=== PATIENT | female | born 2000 | race Caucasian/White ===

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

== ENCOUNTER → 2022-11-21 15:03 | Outpatient (CLI) | payer OTHER, SELFPAY ==
--- NOTE | 2022-11-21 | DI.US.S_ITS ---
PROCEDURE: US OB >= 14 WEEKS FETUS INDICATIONS: 20WK ANATOMY SCAN OUTSIDE/PRIOR DATING DATA: Last menstrual period (LMP): 06/30/2022. LMP-based estimated date of delivery (LAUREANO): 04/06/2023. First dating scan (date and location): 11/21/2022. The calculations are made using the clinical LAUREANO of 04/06/2023. TECHNIQUE: Real-time scanning was performed of the fetus, with image documentation and biometric measurements. COMPARISON: None. FINDINGS: General: A single living intrauterine gestation is present. Presentation: Breech. Placenta: Placental position is anterior, without previa. Amniotic fluid index: 13.5 cm, normal range is 5-24 cm. Single deepest vertical pocket is 4.1 cm. heart rate: 144 beats per minute. Maternal cervical canal: 4.7 cm long. Normal lower limit is 2.5 cm. biometrics: Biparietal diameter: 4.8 cm, 20 weeks 4 days Head circumference: 18.8 cm, 21 weeks 0 days Abdominal circumference: 16.6 cm, 21 weeks 4 days Femur length: 3.3 cm, 20 weeks 1 days Clinically estimated gestational age: 20 weeks 4 days Composite gestational age from present scan: 20 weeks 6 days Estimated weight and percentile: 389 g, 67th percentile Anatomic survey: Neuro: Ventricles are non-dilated at less than 10 mm. Cisterna magna is normal at 3-11 mm. Cerebellum is normal in size and morphology. Nuchal skin fold: Normal at less than 6 mm between 14-21 weeks gestational age. Face: Nose and lips, facial profile are normal. Spine: No evidence for spina bifida. Heart: 4-chambered heart is present, with normal ventricular outflow tracts. Diaphragm: Diaphragm is intact. Stomach: Left-sided stomach is present. Kidneys: No hydronephrosis. Normal is less than 5 mm in 2nd trimester, less than 7 mm in 3rd trimester. Cord: 3-vessel cord has orthotopic insertion. Bladder: Normal in size. Extremities: All 4 extremities identified. IMPRESSION: 1. Tyler living intrauterine at 20 weeks 6 days based on today's ultrasound. Fetus is in the 67th percentile for weight. 2. Normal placenta and amniotic fluid. 3. Normal and complete anatomic survey. We strive to produce accurate, complete, and clear reports of imaging services. To assist us in improving patient care, this report was composed using standard report templates and voice recognition software. Therefore, it may contain abnormal punctuation, insertions and/or omissions. Occasional wrong-word or sound-alike substitutions may occur. Though we review the report and make efforts to correct it, we do recommend that the report be read carefully in proper context to recognize any text inaccuracies. Dictated by: Dk Frias M.D. on 11/21/2022 at 16:23 Approved by: Dk Frias M.D. on 11/21/2022 at 16:27
== END ==
PROVIDERS: Referring Provider Nurse Practitioner Obstetrics & Gynecology; Visit Provider Nurse Practitioner Obstetrics & Gynecology
DX: Z34.92 Encounter for supervision of normal pregnancy, unspecified, second trimester (principal); Z3A.20 20 weeks gestation of pregnancy
CPT/HCPCS: 76811

== ENCOUNTER → 2023-02-25 13:22 | Outpatient (CLI) | payer OTHER, SELFPAY ==
--- NOTE | 2023-02-25 | DI.US.S_ITS ---
PROCEDURE: US OB LIMITED INDICATIONS: GROWTH OUTSIDE/PRIOR DATING DATA: Last menstrual period (LMP): 06/30/2022. LMP-based estimated date of delivery (LAUREANO): 04/06/2023. First dating scan (date and location): 11/21/2022. The calculations are made using the clinical LAUREANO of 04/06/2023. TECHNIQUE: Real-time scanning was performed of the fetus, with image documentation and biometric measurements. Endovaginal scanning: Not performed COMPARISON: [facility], OB >= 14 WEEKS FETUS, 11/21/2022, 15:11. FINDINGS: General: A single living intrauterine gestation is present. Presentation: Vertex. Placenta: Placental position is anterior , without previa. Amniotic fluid index: 11.5 cm, normal range is 5-24 cm. Single deepest vertical pocket is 7.4 cm. heart rate: 137 beats per minute. biometrics: Biparietal diameter: 8.7 centimeters, 35 weeks and 1 day Head circumference: 31.4 centimeters, 35 weeks and 2 days Abdominal circumference: 31.2 centimeters, 35 weeks and 6 days Femur length: 6.8 centimeters, 34 weeks and 6 days Clinically estimated gestational age: 34 weeks and 2 days Composite gestational age from present scan: 35 weeks and 2 days Estimated weight and percentile: 2690 grams, 79th percentile Other: Not applicable. IMPRESSION: Single live intrauterine at 35 weeks and 2 days. Normal interval growth. We strive to produce accurate, complete, and clear reports of imaging services. To assist us in improving patient care, this report was composed using standard report templates and voice recognition software. Therefore, it may contain abnormal punctuation, insertions and/or omissions. Occasional wrong-word or sound-alike substitutions may occur. Though we review the report and make efforts to correct it, we do recommend that the report be read carefully in proper context to recognize any text inaccuracies. Dictated by: Tyler Godinez M.D. on 02/25/2023 at 14:36 Approved by: Tyler Godinez M.D. on 02/25/2023 at 14:38
== END ==
PROVIDERS: Referring Provider Nurse Practitioner Obstetrics & Gynecology; Visit Provider Nurse Practitioner Obstetrics & Gynecology
DX: O26.843 Uterine size-date discrepancy, third trimester (principal); Z3A.35 35 weeks gestation of pregnancy
CPT/HCPCS: 76815

== ENCOUNTER 2023-04-07 02:39 | Inpatient (IN) | payer OTHER, MEDICAID, SELFPAY ==
[2023-04-07 03:37] LABS: Add Manual Diff / Slide Review NO; Basophils Absolute Auto 100 /uL (0-100); Basophils Percent Auto 0.5 % (0-2); Eosinophils Absolute Auto 200 /uL (0-450); Eosinophils Percent Auto 1.1 % (2-4); Hematocrit 35.5 % (36-46); Hemoglobin 12.3 g/dL (12.0-16.0); Lymphocytes Absolute Auto 3300 /uL (1100-4500); Lymphocytes Percent Auto 20.3 % (25-40); Mean Corpuscular HGB Conc 34.6 % (30-36); Mean Corpuscular Hemoglobin 30.8 PG (26-34); Mean Corpuscular Volume 89.2 fL (80-100); Monocytes Absolute Auto 600 /uL (0-900); Monocytes Percent Auto 3.8 % (3-14); Neutrophils Absolute Auto 12100 /uL (1500-7000); Neutrophils Percent Auto 74.3 % (50-75); Platelet Count 180 X10^3/uL (150-400); Red Blood Cell Count 3.98 X10^6/uL (4.0-5.2); White Blood Cell Count 16.3 X10^3/uL (4.5-11.0)
--- NOTE | 2023-04-07 04:13 | PM.AN.REGBLK ---
Regional Block Pre-procedure Procedure: Continuous Lumbar Epidural for L&D Attending OB provider: Jen Blackwell PMH/ROS narrative: 22yo female full-term in labor requesting epidural. Hx smoking and alcohol prior to . Pt denies hx drug use; chart notes hx of meth abuse and alcohol abuse in past. See Preanesthesia evaluation for additional hx and exam. PSH/Anesthesia history narrative: Prior labor epidural, one-sided block; epidural was replaced with good efficacy. ASA Class: II Labs: Hct 35.5 % (36-46) L 04/07/23 03:20 Plt Count 180 X10^3/uL (150-400) 04/07/23 03:20 Medications: Current Medications Generic Name Dose Route Start Last Admin Trade Name Freq PRN Reason Stop Dose Admin Carboprost Tromethamine 250 mcg 04/07/23 03:23 Carboprost 250 Mcg/Ml Ampul IM Q90M PRN Bleeding Oxytocin/Lactated Ringer's 30 unit in 500 mls @ 200 mls/hr 04/07/23 03:23 Oxytocin Premix IV CONT PRN Bleeding Protocol Tranexamic Acid 1,000 mg/ 100 mls @ 200 mls/hr 04/07/23 03:23 Sodium Chloride IV NOW PRN Bleeding Lactated Ringer's 1,000 mls @ 100 mls/hr 04/07/23 03:30 Lactated Ringers IV CONT DIOR Ampicillin Sodium 1,000 mg/ 100 mls @ 200 mls/hr 04/07/23 04:15 Sodium Chloride IV Q6H DIOR Lidocaine HCl 20 ml 04/07/23 03:23 Lidocaine 1% 20 Ml INJ INTRA-OP PRN Post Delivery Methylergonovine Maleate 0.2 mg 04/07/23 03:23 Methylergonovine 0.2 Mg Tablet PO Q6HR PRN Heavy Bleeding Methylergonovine Maleate 0.2 mg 04/07/23 03:23 Methylergonovine 0.2 Mg/Ml Vial IM NOW PRN Bleeding Misoprostol 800 mcg 04/07/23 03:23 Misoprostol 200 Mcg Tablet IA NOW PRN Bleeding Misoprostol 400 mcg 04/07/23 03:23 Misoprostol 200 Mcg Tablet SL NOW PRN Bleeding Naloxone HCl 0.2 mg 04/07/23 03:23 Naloxone 0.4 Mg/Ml Vial IV Q2MIN PRN Opiate Reversal Oxytocin 10 unit 11/28/23 03:23 Oxytocin 10 Unit/Ml Vial IM NOW PRN Bleeding Allergies: Allergies Allergy/AdvReac Type Severity Reaction Status Date / Time gluten Allergy Verified 04/07/23 04:01 lactose Allergy Verified 04/07/23 04:01 Procedure Insertion date: 04/07/23 Insertion time: 03:55 Prep/Local: 1% lidocaine Interspace: L3-4 Patient position: sitting Needle: 18 gauge Hustead Loss of resistance with: saline RUBY at (cm): 6 Catheter placed at SKIN (cm): 13 Catheter in SPACE (cm): 7 Insertion: Yes Paresthesia with insertion Initial Medications TEST DOSE time: 03:56 BOLUS DOSE time: 03:57 BOLUS DOSE (mL): 5 BOLUS DOSE med: other Infusion INFUSION: 0.125% bupivacaine and with fentanyl 2 mcg/mL Initial rate (mL/hr): 10 Subsequent interventions: Lido 2% 5 ml initial bolus. Pt reports pain 6/10, down from 10/10. Mj DAWKINS effective, R>L. Clinician bolus when starting infusion, 5 ml, at 04:10. Post-procedure Anesthesia time START: 03:48 Anesthesia time END: 06:49 Post-procedure Anesthesia Assessment: Yes CV function: HR/BP stable, Yes Resp function: RR/sat/airway adequate, Yes Post-op hydration adequate, Yes Pain control adequate, Yes Nausea & vomiting absent, Yes Temperature > 36 C and Yes Mental status appropriate
[2023-04-07] MEDS: AMPICILLIN 2,000 MG in SODIUM CHLORIDE 0.9% 100 ML 200 MG IV (04:15)
[2023-04-07] MEDS: LACTATED RINGERS 1,000 ML 100 ML IV (04:18)
--- NOTE | 2023-04-07 04:36 | P.HPOB_ITS ---
OB HPI Date/Time Date of admission: 04/07/23 Date Patient Seen: 04/07/23 Time Patient Seen: 02:30 History of Present Condition Chief complaint: labor : 2 Para: 1 Estimated Date of Delivery: 04/06/23 Estimated Gestational Age (weeks): 40w1d Narrative: Roseline Gaytan is a 22 year old female at 40w1d by LMP and confirmed by9w6d ultrasound. 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 She took LDASA throughout this for history of Jazz's. Roseline had normal mid-trimester ultrasound, normal labs, and was GBS negative. Roseline saw CNM yesterday and had a membrane sweep at 4 cm. Paged at 0115 wondering if she should head in, but was uncertain about labor sensations; uncomfortable but difficult to time contractions, and then decided to come in at 0200. She arrived working hard in labor, and when she asked for an exam, she was 7.5/90/0/anterior/soft. She requested an epidural. Denied leaking of fluid. Baby normally active. History of Present care: good care (9), initiated at week # (9), number of visits (12) and pounds weight gain (20) Dating criteria: LMP confirmed by 1st trimester US Ultrasounds: normal 1st trimester US and normal mid trimester US Preadmission Labs Blood type: O (+) positive -: Antibody screen: negative, GBS status: positive, HBsAG: negative, HIV: negative and RPR/VDLR: negative -: Chlamydia screen: not detected and Gonorrhea screen: not detected -: Rubella: immune and Varicella: immune HCT: 33.6 HCAB: negative PAP: Normal Integrated screen: MSAFP negative Cell-free DNA: Negative x 3, XY Prior (ies) History: TAB 12/2018, uncomplicated 06/2020 [facility] Medical History (Updated 04/07/23 @ 05:05 by Jen Blackwell, JOE, [employer] EFFECTS MAKEUP ARTIST) Genital HSV Status post elective Methamphetamine abuse, episodic Alcohol abuse Anxiety HSV (herpes simplex virus) infection Jazz's thyroiditis History of ear injury Asthma Depression Surgical History No history of previous surgery Family History Family/Other Depression Social History Smoking Status: Current some day smoker (Gave patient a smoking cessation handout.) Tobacco: How many years used: 2 quit status: considering quitting (I'm working on it. ) second hand exposure: No alcohol intake: former substance use type: former substance user (meth and weed quit 02/19/18) Meds Home Medications and Allergies Home Medications Medication Instructions Recorded Confirmed Type bupropion HCl 150 mg 24 hr tablet, 150 mg PO QAM #30 tabs 12/28/18 02/07/19 Rx extended release buspirone 5 mg tablet 5 mg PO BID #60 tabs 12/28/18 02/07/19 Rx levothyroxine 112 mcg tablet 112 mcg PO DAILY 04/07/23 04/07/23 History (Synthroid) liothyronine 04/07/23 History Allergies Allergy/AdvReac Type Severity Reaction Status Date / Time gluten Allergy Verified 04/07/23 04:01 lactose Allergy Verified 04/07/23 04:01 Review of Systems Review of Systems Narrative: All negative except as mentioned in HPI. OB Exam Vital signs Blood Pressure: 115/62 Pulse Rate: 95 Respiratory Rate: 20 Temperature: 95.9 F Resp Effort & Inspection: normal respiratory effort and able to speak in complete sentences Extremities Lower extremity: Yes normal to inspection Presentation: vertex Estimated Weight (lbs): 8 Amniotic Fluid: no fluid Objective Labs 04/07/23 03:20 Labs: Laboratory Results - last 24 hr 04/07/23 03:20 WBC 16.3 H RBC 3.98 L Hgb 12.3 Hct 35.5 L MCV 89.2 MCH 30.8 MCHC 34.6 RDW 14.0 Plt Count 180 Neut % (Auto) 74.3 Lymph % (Auto) 20.3 L [place] % (Auto) 3.8 Eos % (Auto) 1.1 L Baso % (Auto) 0.5 Neut # (Auto) 41898 H Lymph # (Auto) 3300 [place] # (Auto) 600 Eos # (Auto) 200 Baso # (Auto) 100 Blood Type O Positive Antibody Screen Negative Assessment and Plan Assessment and Plan Assessment and Plan narrative: at 40w1d by LMP confirmed by early ultrasound. GBS positive Rh positive History of genital herpes Jazz's thyroiditis History of anxiety and depression History of methamphetamine and alcohol abuse FHR Cat 1 Active labor Admit to L&D Prepare for epidural and call anesthesia Administer GBS prophylaxis Anticipate .
[2023-04-07 05:12] VITALS: BP 115/62; PULSE 95; RESP 20; TEMP 35.5
--- NOTE | 2023-04-07 05:40 | P.PCNOB_ITS ---
<Jen Blackwell CNM, DECK SCALER - Last Filed: 04/07/23 07:30> Labor & Delivery Delivery date: 04/07/23 Intrapartal Events: None Cervical ripening method: none Induction method: none Delivery monitor: none Route of delivery: L&D Laceration Description: None Quantitative Blood Loss: 400 Anesthesia Type: Epidural Narrative: Labor progressed well. Began pushing with anterior lip reduced by CNM; effective pushing resulted in a short 2nd stage. FHR was Cat 1 throughout 2nd stage. NSVB of baby at 065, shoulders delivered easily. Baby was placed on maternal abdomen by Abraham (FOB) when Roseline was ready and reached for him. Apgars 9/9. They remained skin to skin while cord was cut and placenta was delivered. Placenta delivered spontaneously with maternal efforts and appeared to be intact. 3 vessel cord clamped and cut by FOB at 10 minutes of life after cord pulsing had stopped. Cord blood collected for blood typing. Perineum inspected and found to be intact. Stretch agus between clitoris and . Blood loss measured and estimated loss is 400 mL. Mom and baby left stable and is being initiated. Roseline & Abraham are thrilled to meet their son. Jen ALBRIGHT CNM, IBCLC [place] Baby 1: Infant gender: Male Presentation: vertex Position: Left Occiput Anterior Placenta delivery description: Spontaneous Cord Vessel Description: 3 Vessels score (1 min): 8 score (5 min): 8 Plan for aftercare: Routine care <Syl Macias CNM - Last Filed: 04/08/23 16:24> Labor & Delivery Narrative: Labor progressed well. Began pushing with anterior lip reduced by CNM; effective pushing resulted in a short 2nd stage. FHR was Cat 1 throughout 2nd stage. NSVB of baby at 065, shoulders delivered easily. Baby was placed on maternal abdomen by Abraham (FOB) when Roselnie was ready and reached for him. Apgars 9/9. They remained skin to skin while cord was cut and placenta was delivered. Placenta delivered spontaneously with maternal efforts and appeared to be intact. 3 vessel cord clamped and cut by FOB at 10 minutes of life after cord pulsing had stopped. Cord blood collected for blood typing. Perineum inspected and found to be intact. Stretch agus between clitoris and urethra. Blood loss measured and estimated loss is 400 mL. Mom and baby left stable and is being initiated. Roseline & Abraham are thrilled to meet their son. Jen ALBRIGHT CNM, IBCLC [place] Baby 1: weight: 3.877 kg
[2023-04-07] MEDS: OXYTOCIN 10 UNIT/ML VIAL IM (07:17)
[2023-04-07] MEDS: LEVOTHYROXINE 112 MCG TABLET PO (09:37)
[2023-04-07] MEDS: LIOTHYRONINE 5 MCG TABLET PO (09:37)
--- NOTE | 2023-04-07 12:18 | P.DS_ITS ---
Discharge Providers Provider Date of admission: 04/07/23 02:39 Discharge Date: 04/07/23 Primary care physician: Jero ULRICH Provider Discharge provider: Syl Macias CNM Summary Hospital Course Date Patient Seen: 04/07/23 Time Patient Seen: 12:00 Diagnoses: O80 Hospital Course: Day of delivery: 5 hours s/p NSVB of a healthy baby boy. Epidural catheter has been removed. Patient is voiding, ambulating and independently. Minimal pain is well controlled with PO medication. Tolerating a general diet. Vaginal bleeding is period-like without clots. Partner is present and supportive. they would like an early discharge to home, if all is normal. Peripartum Data Delivery Method: Natural Vaginal Laceration Description: Superficial Episiotomy description: None [employer] 1: Gender: Male Disposition of : home Discharge Diagnosis (1) Encounter for full-term uncomplicated delivery: Status: Acute Status at Discharge Cognitive/behavioral status at discharge: oriented and calm Functional status at discharge: independent ambulation Overall status at discharge: patient is progressing back to baseline Time Spent with Patient Time attestation: Total time spent providing and/or coordinating discharge services: Objective Labs 04/07/23 03:20 Labs: Laboratory Results - last 24 hr 04/07/23 03:20 WBC 16.3 H RBC 3.98 L Hgb 12.3 Hct 35.5 L MCV 89.2 MCH 30.8 MCHC 34.6 RDW 14.0 Plt Count 180 Neut % (Auto) 74.3 Lymph % (Auto) 20.3 L [place] % (Auto) 3.8 Eos % (Auto) 1.1 L Baso % (Auto) 0.5 Neut # (Auto) 44093 H Lymph # (Auto) 3300 [place] # (Auto) 600 Eos # (Auto) 200 Baso # (Auto) 100 Blood Type O Positive Antibody Screen Negative Exam Vital Signs (past 8 hours): - 04/07/23 1045 Temperature 97.2 F L Pulse Rate 87 H Respiratory Rate 20 Blood Pressure 102/61 Other: Fundus firm @ u, lochia light, no clots Psych Appearance: grossly normal and well kempt Mental Status: mental status grossly normal Speech and Movement: speech and movement normal Mood: congruent mood Discharge Plan Discharge Plan Patient Disposition: Home Discharge orders & Medications Prescriptions: New ibuprofen 600 mg tablet 600 mg PO Q6H PRN (Reason: pain) 14 Days Qty: 60 0RF Continued levothyroxine [Synthroid] 112 mcg tablet 112 mcg PO DAILY liothyronine 5 mcg tablet Discontinued buspirone 5 mg tablet 5 mg PO BID Qty: 60 3RF Rx Instructions: Take one tablet at bedtime for 3 nights, then twice daily thereafter bupropion HCl 150 mg tablet extended release 24 hr 150 mg PO QAM Qty: 30 3RF Follow up/Referrals: Provider,Jero ULRICH [Primary Care Provider] - Syl Macias CNM [[employer] Structural Fitter] - (Follow-up for yourself and your baby tomorrow 04/08/23 @ 1145am 2 week follow-up in office 04/22/23 @ 3pm 6 week follow-up in office 05/20/22 @ 1245pm ) Diet/Activity/Treatments Diet: Diet as Tolerated and Regular Activity: bed rest x 2 weeks, pelvic rest x 6 weeks Skin/Wound/Dressing Care Report to your healthcare provider any signs of infection, such as:: chills, fever, increased pain, unusual drainage and unusual redness Visit Report/Discharge Packet Instructions: Depression Stand Alone Forms: Patient Portal/API, Stroke Signs & Symptoms Discharge Data Primary Care Provider: Jero Muro
[2023-04-07] MEDS: ACETAMINOPHEN 325 MG TABLET 650 MG PO (12:38)
== END 2023-04-07 14:55 | disposition home or self-care (01) | DRG 807 ==
PROVIDERS: Admitting Provider Advanced Practice Midwife; Referring Provider Advanced Practice Midwife; Visit Provider Advanced Practice Midwife
DX: O98.32 Other infections with a predominantly sexual mode of transmission complicating childbirth (principal); Z37.0 Single live birth; A60.9 Anogenital herpesviral infection, unspecified; O99.284 Endocrine, nutritional and metabolic diseases complicating childbirth; E06.3 Autoimmune thyroiditis; Z3A.40 40 weeks gestation of pregnancy; O99.824 Streptococcus B carrier state complicating childbirth; O99.334 Smoking (tobacco) complicating childbirth
CPT/HCPCS: 36415; 59050; 85025; 86850; 86900; 86901; G0379; J0290; J2590

== ENCOUNTER → 2023-11-16 14:10 | Outpatient (CLI) | payer OTHER, MEDICAID, SELFPAY ==
--- NOTE | 2023-11-16 14:11 | DI.US.S_ITS ---
PROCEDURE: US OB >= 14 WEEKS FETUS INDICATIONS: anatomy OUTSIDE/PRIOR DATING DATA: Last menstrual period (LMP): 06/20/2023 LMP-based estimated date of delivery (LAUREANO): 03/26/2024 First dating scan (date and location): Unknown Estimated date of delivery (LAUREANO) from first dating scan: 04/05/2024 TECHNIQUE: Real-time scanning was performed of the fetus, with image documentation and biometric measurements. COMPARISON: US, OB LIMITED, 02/25/2023, 13:28. [facility], , OB >= 14 WEEKS FETUS, 11/21/2022, 15:11. FINDINGS: General: A single living intrauterine gestation is present. Presentation: Vertex. Placenta: Placental position is posterior , without previa. 11.4 Amniotic fluid index: 11.4 cm, normal range is 5-24 cm. Single deepest vertical pocket is 3.4 cm. heart rate: 140 beats per minute. Maternal cervical canal: 5.5 cm long. Normal lower limit is 2.5 cm. biometrics: Biparietal diameter: 4.3 cm 19 weeks 0 days Head circumference: 17.1 cm 19 weeks 5 days Abdominal circumference: 14.3 cm 19 weeks 4 days Femur length: 3.7 cm 21 weeks 4 days Clinically estimated gestational age: 21 weeks 2 days Composite gestational age from present scan: 20 weeks 0 days Estimated weight and percentile: 351 g 10th percentile Anatomic survey: Neuro: Ventricles are non-dilated at less than 10 mm. Cisterna magna is normal at 3-11 mm. Cerebellum is normal in size and morphology. Nuchal skin fold: Normal at less than 6 mm between 14-21 weeks gestational age. Face: Nose and lips, facial profile are normal. Spine: No evidence for spina bifida. Heart: 4-chambered heart and ventricular outflow tracts are not well seen. Diaphragm: Diaphragm is intact. Stomach: Left-sided stomach is present. Kidneys: No hydronephrosis. Normal is less than 5 mm in 2nd trimester, less than 7 mm in 3rd trimester. Cord: 3-vessel cord has orthotopic insertion. Bladder: Normal in size. Extremities: Left upper extremity is not well seen. IMPRESSION: Single live intrauterine with ultrasound gestational age today of 20 weeks 1 day. 4 chambered heart/outflow tracts and left upper extremity are not well seen. Recommend interval follow-up. weight is at the 10th percentile. However, this is early gestational age age and continued follow-up is recommended. We strive to produce accurate, complete, and clear reports of imaging services. To assist us in improving patient care, this report was composed using standard report templates and voice recognition software. Therefore, it may contain abnormal punctuation, insertions and/or omissions. Occasional wrong-word or sound-alike substitutions may occur. Though we review the report and make efforts to correct it, we do recommend that the report be read carefully in proper context to recognize any text inaccuracies. Dictated by: Chanell Marcelino M.D. on 11/16/2023 at 17:40 Approved by: Chanell Marcelino M.D. on 11/16/2023 at 17:43
== END ==
PROVIDERS: PCP Family Medicine; Referring Provider Family Medicine; Visit Provider Family Medicine
DX: Z34.82 Encounter for supervision of other normal pregnancy, second trimester (principal); Z3A.20 20 weeks gestation of pregnancy
CPT/HCPCS: 76811

== ENCOUNTER → 2023-12-03 15:45 | Outpatient (CLI) | payer OTHER, MEDICAID, SELFPAY ==
[2023-12-03 16:48] LABS: Alanine Aminotransferase 10 IU/L (<35); Albumin Globulin Ratio 1.3 (1.0-2.8); Alkaline Phosphatase 84 U/L (38-126); Aspartate Aminotransferase 19 IU/L (14-36); BUN Creatinine Ratio 9.8 (6-22); Blood Urea Nitrogen 5 mg/dL (7-17); Calcium 8.7 mg/dL (8.4-10.2); Carbon Dioxide 22 mmol/L (22-32); Chloride 109 mmol/L (98-107); Estimated Glomerular Filt Rate > 60 mL/min (>60); Globulin 3.2 g/dL (1.7-4.1); Glucose 80 mg/dL (70-100); HEMOLYSIS < 15 (0-50); Potassium 3.6 mmol/L (3.4-5.1); Sodium 138 mmol/L (137-145); Total Protein 7.2 g/dL (6.3-8.2)
== END ==
PROVIDERS: PCP Family Medicine; Referring Provider Family Medicine; Visit Provider Family Medicine
DX: Z34.80 Encounter for supervision of other normal pregnancy, unspecified trimester (principal)
CPT/HCPCS: 36415; 80053; 84443

== ENCOUNTER 2023-12-18 16:57 | Outpatient (CLI) | payer OTHER, MEDICAID, SELFPAY | END 2023-12-18 17:45 | disposition home or self-care (01) | LOC: LABOR 17:16 → OB 12-22 12:28 | PROVIDERS: PCP Family Medicine; Referring Provider Family Medicine; Visit Provider Family Medicine | DX: O46.92 Antepartum hemorrhage, unspecified, second trimester (principal); Z3A.24 24 weeks gestation of pregnancy | CPT/HCPCS: 59025; G0378; G0379 ==

== ENCOUNTER → 2023-12-29 09:59 | Outpatient (CLI) | payer OTHER, MEDICAID, SELFPAY | PROVIDERS: PCP Family Medicine; Referring Provider Family Medicine; Visit Provider Family Medicine | DX: O36.5990 Maternal care for other known or suspected poor fetal growth, unspecified trimester, not applicable or unspecified (principal) | CPT/HCPCS: 87210 ==

== ENCOUNTER → 2024-01-01 10:02 | Outpatient (CLI) | payer OTHER, MEDICAID, SELFPAY ==
[2024-01-01 10:33] LABS: Add Manual Diff / Slide Review NO; Basophils Absolute Auto 0 /uL (0-100); Basophils Percent Auto 0.3 % (0-2); Eosinophils Absolute Auto 200 /uL (0-450); Hematocrit 32.4 % (36-46); Hemoglobin 11.3 g/dL (12.0-16.0); Lymphocytes Absolute Auto 2200 /uL (1100-4500); Mean Corpuscular Hemoglobin 31.4 PG (26-34); Mean Corpuscular Volume 89.8 fL (80-100); Monocytes Absolute Auto 400 /uL (0-900); Monocytes Percent Auto 4.4 % (3-14); Neutrophils Absolute Auto 7200 /uL (1500-7000); Neutrophils Percent Auto 71.3 % (50-75); Platelet Count 157 X10^3/uL (150-400); Red Blood Cell Count 3.61 X10^6/uL (4.0-5.2); Red Cell Distribution Width 13.6 % (11.6-14.8); White Blood Cell Count 10.1 X10^3/uL (4.5-11.0)
[2024-01-01 10:55] LABS: Glucose 83 mg/dL (70-100)
== END ==
PROVIDERS: PCP Family Medicine; Referring Provider Family Medicine; Visit Provider Family Medicine
DX: E06.3 Autoimmune thyroiditis (principal); F41.8 Other specified anxiety disorders
CPT/HCPCS: 36415; 82947; 84443; 85025

== ENCOUNTER → 2024-01-05 08:31 | Outpatient (CLI) | payer OTHER, MEDICAID, SELFPAY ==
[2024-01-05 10:43] LABS: GTT (PREG) 1 Hour PP 50gm Dose 87 mg/dL (76-139)
== END ==
PROVIDERS: PCP Family Medicine; Referring Provider Family Medicine; Visit Provider Family Medicine
DX: Z34.80 Encounter for supervision of other normal pregnancy, unspecified trimester (principal)
CPT/HCPCS: 36415; 82950

== ENCOUNTER → 2024-01-13 10:28 | Outpatient (CLI) | payer OTHER, MEDICAID, SELFPAY | PROVIDERS: PCP Family Medicine; Visit Provider Nurse Practitioner Family | DX: J02.9 Acute pharyngitis, unspecified (principal) | CPT/HCPCS: 87070 ==

== ENCOUNTER 2024-02-05 13:00 | Outpatient (CLI) | payer OTHER, MEDICAID, SELFPAY ==
[2024-02-05 13:47] LABS: Appearance Urine UA CLOUDY; Bilirubin Urine UA NEGATIVE (NEGATIVE); Color Urine UA YELLOW; Glucose Urine UA NEGATIVE (Negative); Ketones Urine UA NEGATIVE (NEGATIVE); Leukocyte Esterase Urine UA 2+ (NEGATIVE); Nitrite Urine UA NEGATIVE (Negative); Occult Blood Urine UA NEGATIVE (Negative); Protein Urine UA 1+ (Negative); Specific Gravity Urine UA 1.015 (1.000-1.035)
[2024-02-05 13:51] LABS: Urine Volume 10mL (spun)
[2024-02-05 13:52] LABS: Bacteria Urine Many (>30); Culture Indicated Urine Specimen Cultured; RBC Urine None Seen (0-5/HPF); Squamous Epithelial Cell Urine 5-10 /HPF (0-5/HPF); WBC Urine 5-10/HPF (0-5/HPF)
--- NOTE | 2024-02-05 14:19 | P.TNLD_ITS ---
Visit Information Visit Information Date of evaluation: 02/05/24 Primary OB Provider: Sharla Serna Reason for Evaluation: Yes other Comments/Additional reasons for admission: at 31w3d today, complicated by hypothyroidism, HSV, h/o severe PP depression and concern for IUGR now resolved. Called clinic today with concerns for pelvic cramping. Thought she was having BH since midnight. Not increasing in intensity, vague pain. Unable to count frequency. No change in discharge. No LOF or VB. Good FM. Recommended evaluation in OB triage given symptoms at 31 weeks. [facility] Medical History (Updated 01/04/24 @ 19:14 by Akila Chino) Substance abuse Anemia (~2017) Tinnitus Ovarian cyst Hemorrhoid (~2018) Hypothyroidism Cervical cancer (~2020) Acne HSV (herpes simplex virus) infection Positive GBS test Genital HSV Status post elective Methamphetamine abuse, episodic Alcohol abuse Anxiety History of ear injury Asthma Depression Surgical History (Updated 11/16/23 @ 10:38 by Rosette Leon RN) History of dilation and curettage (~2018) [place] teeth extracted (~2018) Family History (Updated 11/16/23 @ 10:42 by Rosette Leon, FUNMILAYO) Mother Hypothyroidism Depression hemorrhage Sister Hyperthyroidism Aunt Hyperthyroidism Skin cancer Grandfather Parkinson's disease Grandmother Hypertension Depression Father Depression Grandmother Depression Social History (System 11/16/23 @ 08:42 by Liane Allison) marital status: unmarried,living together number of children: 2 household members: significant other lives independently: Yes caregiver/support person: Yes housing: homeless (couch hopping w/ relatives) pets and animals: No education level: college (Associate's degree) occupational status: unemployed current occupational exposures/hazards: No special joo needs: No travel history: over 6 months ago seatbelt use: always water heater temp set < 120 deg: Yes working smoke detector in home: Yes fire extinguisher in home: Yes carbon monox detector in home: Yes firearms in home: No do you feel safe at home: Yes Smoking Status: Former smoker Tobacco: How many years used: 9 (smoked->vaped->nicotine gum, quit at beginning of this ) quit status: considering quitting (I'm working on it. ) second hand exposure: Yes (s/o smokes outside) alcohol intake: former (~1-2 glasses wine/week most weeks when not ) substance use type: former substance user (meth and weed quit 02/19/18, relapsed, quit again 2019) during the past year weight has: other (youngest child 7 months old (~15-20 lb over non- wt at beginning of this )) well-balanced diet: daily or most days daily servings fruits/ve or more times/day caffeine: Yes (1-2 shots espresso) Type(s) of exercise: none Exam Vital Signs (past 8 hours): Cervix C/T/H on exam by FUNMILAYO Kapoor Objective Labs Labs: Laboratory Results - last 24 hr 02/05/24 13:23 Urine Color Yellow Urine Appearance Cloudy Urine pH 7.0 Ur Specific [place] 1.015 Urine Protein 1+ H Urine Glucose (UA) Negative Urine Ketones Negative Urine Occult Blood Negative Urine Nitrate Negative Urine Bilirubin Negative Urine Urobilinogen 1.0 Ur Leukocyte Esterase 2+ H Urine RBC None seen Urine WBC 5-10/hpf H Ur Squamous Epith Cells 5-10 /hpf H Urine Bacteria Many (>30) H Ur Culture Indicated? Specimen cultured Vol Urine Centrifuged 10ml (spun) Evaluation Evaluation Baseline heart rate: 120 Variability: Moderate (11-25) monitor accelerations: Present Monitor Decelerations: Absent Category of Tracing: Reactive Status: Category l Diagnosis, Plan/Disposition Plan/Disposition Plan: FHT category 1. No contractions on monitoring. Cervix C/T/H on exam. UA concerning for UTI. Rx for Keflex sent. Urine culture pending. Rest, hydration advised. Wet prep pending. F/u as planned, sooner if not improving or worsening
== END 2024-02-05 14:15 | disposition home or self-care (01) ==
LOC: LABOR 13:26 → OB 02-08 09:03
PROVIDERS: PCP Family Medicine; Referring Provider Family Medicine; Visit Provider Family Medicine
DX: O26.893 Other specified pregnancy related conditions, third trimester (principal); R10.9 Unspecified abdominal pain; O99.283 Endocrine, nutritional and metabolic diseases complicating pregnancy, third trimester; O98.513 Other viral diseases complicating pregnancy, third trimester; B00.9 Herpesviral infection, unspecified; E03.9 Hypothyroidism, unspecified; Z3A.31 31 weeks gestation of pregnancy
CPT/HCPCS: 59025; 81003; 81015; 87086; 87210; G0378; G0379

== ENCOUNTER → 2024-02-12 08:27 | Outpatient (CLI) | payer OTHER, MEDICAID, SELFPAY ==
[2024-02-12 10:59] LABS: TSH w/ Reflex to FT4 2.54 uIU/mL (0.47-4.68)
== END ==
PROVIDERS: PCP Family Medicine; Referring Provider Family Medicine; Visit Provider Family Medicine
DX: E03.9 Hypothyroidism, unspecified (principal)
CPT/HCPCS: 36415; 84443

== ENCOUNTER → 2024-02-15 12:00 | Outpatient (CLI) | payer OTHER, MEDICAID, SELFPAY ==
--- NOTE | 2024-02-15 | DI.US.S_ITS ---
PROCEDURE: US OB LIMITED INDICATIONS: growth OUTSIDE/PRIOR DATING DATA: Last menstrual period (LMP): 06/20/2023. LMP-based estimated date of delivery (LAUREANO): 03/26/2024. First dating scan (date and location): Not known Estimated date of delivery (LAUREANO) from first dating scan: 04/05/2024. The calculations are made using the clinical LAUREANO of 03/26/2024. TECHNIQUE: Real-time scanning was performed of the fetus, with image documentation and biometric measurements. COMPARISON: [facility], OB LIMITED, 02/25/2023, 13:28. [facility], OB >= 14 WEEKS FETUS, 11/16/2023, 14:25. FINDINGS: General: A single living intrauterine gestation is present. Presentation: Vertex. Placenta: Placental position is posterior , without previa. Amniotic fluid index: 17.1 cm, normal range is 5-24 cm. Single deepest vertical pocket is 6.9 cm. heart rate: 125 beats per minute. Maternal cervical canal: 3.7 cm long. Normal lower limit is 2.5 cm. biometrics: Biparietal diameter: 8.1 cm 32 weeks 4 days Head circumference: 29.8 cm 33 weeks 0 days Abdominal circumference: 30.1 cm 34 weeks 1 day Femur length: 6.7 cm 34 weeks 3 days Clinically estimated gestational age: 34 weeks 2 days Composite gestational age from present scan: 33 weeks 4 days Estimated weight and percentile: 2300 g 33rd percentile Other: Upper extremity and cardiac structures are within normal limits. IMPRESSION: Single live intrauterine with gestational age of 33 weeks 4 days. Upper extremity cardiac structures are within normal limits. We strive to produce accurate, complete, and clear reports of imaging services. To assist us in improving patient care, this report was composed using standard report templates and voice recognition software. Therefore, it may contain abnormal punctuation, insertions and/or omissions. Occasional wrong-word or sound-alike substitutions may occur. Though we review the report and make efforts to correct it, we do recommend that the report be read carefully in proper context to recognize any text inaccuracies. Dictated by: Chanell Marcelino M.D. on 02/15/2024 at 17:34 Approved by: Chanell Marcelino M.D. on 02/15/2024 at 17:36
== END ==
LOC: US 12:03
PROVIDERS: PCP Family Medicine; Referring Provider Family Medicine; Visit Provider Family Medicine
DX: Z34.83 Encounter for supervision of other normal pregnancy, third trimester (principal); Z3A.33 33 weeks gestation of pregnancy
CPT/HCPCS: 76815

== ENCOUNTER → 2024-03-15 10:07 | Outpatient (CLI) | payer OTHER, MEDICAID, SELFPAY ==
[2024-03-16 10:46] LABS: Strep Grp B PCR POS for Grp B Strep
== END ==
PROVIDERS: PCP Family Medicine; Referring Provider Family Medicine; Visit Provider Family Medicine
DX: Z34.83 Encounter for supervision of other normal pregnancy, third trimester (principal); Z3A.37 37 weeks gestation of pregnancy
CPT/HCPCS: 87653

== ENCOUNTER 2024-04-07 06:07 | Inpatient (IN) | payer OTHER, MEDICAID, SELFPAY ==
[2024-04-07 07:03] LABS: Add Manual Diff / Slide Review NO; Basophils Absolute Auto 100 /uL (0-100); Basophils Percent Auto 0.6 % (0-2); Eosinophils Absolute Auto 200 /uL (0-450); Eosinophils Percent Auto 1.8 % (2-4); Hematocrit 36.5 % (36-46); Hemoglobin 12.3 g/dL (12.0-16.0); Lymphocytes Absolute Auto 3300 /uL (1100-4500); Lymphocytes Percent Auto 27.6 % (25-40); Mean Corpuscular HGB Conc 33.8 % (30-36); Mean Corpuscular Hemoglobin 29.6 PG (26-34); Mean Corpuscular Volume 87.6 fL (80-100); Monocytes Absolute Auto 700 /uL (0-900); Monocytes Percent Auto 5.6 % (3-14); Neutrophils Absolute Auto 7600 /uL (1500-7000); Neutrophils Percent Auto 64.4 % (50-75); Platelet Count 189 X10^3/uL (150-400); Red Blood Cell Count 4.17 X10^6/uL (4.0-5.2); Red Cell Distribution Width 13.3 % (11.6-14.8); White Blood Cell Count 11.8 X10^3/uL (4.5-11.0)
[2024-04-07] MEDS: LACTATED RINGERS 1,000 ML 100 ML IV ×2 (07:11→08:30)
[2024-04-07] MEDS: AMPICILLIN 2,000 MG in SODIUM CHLORIDE 0.9% 100 ML 200 MG IV (07:12)
--- NOTE | 2024-04-07 07:26 | PM.AN.REGBLK ---
Regional Block Pre-procedure Procedure: Continuous Lumbar Epidural for L&D Attending OB provider: Dhara Jones PMH/ROS narrative: term labor, no complications. PMH PPD, hypothyroid. ASA Class: II Labs: Hct 36.5 % (36-46) 04/07/24 06:53 Plt Count 189 X10^3/uL (150-400) 04/07/24 06:53 Medications: Current Medications Generic Name Dose Route Start Last Admin Trade Name Freq PRN Reason Stop Dose Admin Calcium Carbonate 1,000 mg 04/07/24 06:49 Calcium Carbonate 500 Mg Tab PO Q2HR PRN Dyspepsia Carboprost Tromethamine 250 mcg 04/07/24 06:49 Carboprost 250 Mcg/Ml Ampul IM Q90M PRN Bleeding Oxytocin/Lactated Ringer's 30 unit in 500 mls @ 200 mls/hr 04/07/24 06:49 Oxytocin Premix IV CONT PRN Bleeding Protocol Tranexamic Acid 1,000 mg/ 100 mls @ 600 mls/hr 04/07/24 06:49 Sodium Chloride IV NOW PRN Bleeding Lactated Ringer's 1,000 mls @ 100 mls/hr 04/07/24 07:00 04/07/24 07:11 Lactated Ringers IV 04/07/24 16:59 100 mls/hr CONT DIOR Administration Lidocaine HCl 20 ml 04/07/24 06:49 Lidocaine 1% 20 Ml INJ INTRA-OP PRN Post Delivery Methylergonovine Maleate 0.2 mg 04/07/24 06:49 Methylergonovine 0.2 Mg Tablet PO Q6HR PRN Heavy Bleeding Methylergonovine Maleate 0.2 mg 04/07/24 06:49 Methylergonovine 0.2 Mg/Ml Vial IM NOW PRN Bleeding Mineral Oil 30 ml 04/07/24 06:49 Mineral Oil 30 Ml Udc TOP PRN PRN Version Misoprostol 800 mcg 04/07/24 06:49 Misoprostol [address] NOW PRN Bleeding Misoprostol 400 mcg 04/07/24 06:49 Misoprostol 200 Mcg Tablet SL NOW PRN Bleeding Naloxone HCl 0.2 mg 04/07/24 06:49 Naloxone 0.4 Mg/Ml Vial IV Q2MIN PRN Opiate Reversal Ondansetron HCl 4 mg 04/07/24 06:49 Ondansetron 4 Mg/2 Ml Inj IV Q4HR PRN Nausea And Vomiting Oxytocin 10 unit 04/07/24 06:49 Oxytocin 10 Unit/Ml Vial IM NOW PRN Bleeding Allergies: Allergies Allergy/AdvReac Type Severity Reaction Status Date / Time gluten AdvReac Mild Fatigued Verified 04/05/24 09:22 Solanum- Nightshade AdvReac Mild Fatigued Verified 04/05/24 09:22 Vegetables Procedure Insertion date: 04/07/24 Insertion time: 07:40 Prep/Local: betadine x3 and 1% lidocaine Interspace: L23 Patient position: sitting Needle: 18 gauge Hustead (CSE: 27g Pencan through Hustead, clear CSF, 1mL 0.25% bupiv MPF) Loss of resistance with: saline RUBY at (cm): 5 Catheter placed at SKIN (cm): 11 Catheter in SPACE (cm): 6 Insertion: No CSF, No Blood, No Paresthesia with insertion, No Paresthesia with injection and No Test dose reaction Initial Medications TEST DOSE time: 07:40 TEST DOSE: 1.5% lidocaine with epinephrine 1:200k (mL): 3 BOLUS DOSE time: 07:49 BOLUS DOSE (mL): 4 BOLUS DOSE med: other (infusate) Infusion INFUSION: 0.125% bupivacaine and with fentanyl 2 mcg/mL Initial rate (mL/hr): 10 Subsequent interventions: PCEA@10+4 Post-procedure Anesthesia date START: 04/07/24 Anesthesia time START: 07:29 Anesthesia date END: 04/07/24 Anesthesia time END: 12:16 Post-procedure Anesthesia Assessment: Yes CV function: HR/BP stable, Yes Resp function: RR/sat/airway adequate, Yes Post-op hydration adequate, Yes Pain control adequate, Yes Nausea & vomiting absent, Yes Temperature > 36 C, Yes Mental status appropriate and No Anesthesia complications
--- NOTE | 2024-04-07 08:47 | P.HPOB_ITS ---
OB HPI Date/Time Date of admission: 04/07/24 Date Patient Seen: 04/07/24 Time Patient Seen: 08:30 History of Present Condition Chief complaint: Labor LAUREANO Calculator 2 Estimated Delivery Date Method Current WG Current Estimate 04/05/24 Manual 40w 2d based on 1s t US at [facility], need record Other Estimates 03/26/24 LMP (Certain) 41w 5d : 4 Para: 2 Narrative: 23 yo at 40w2d with contractions beginning at 2am. Presented to L&D at 6am at 6cm dilated. Membranes intact. complicated by HSV on valtrex prophylaxis. GBS positive. Hypothyroidism on 112mcg levothyroxine. IUGR that resolved. care: good care Dating criteria OB: based on 1st trimester US only Ultrasounds: normal 1st trimester US and abnormal US findings Abnormal ultrasound findings: IUGR resolved. serial MFM US. Obstetrical complications: growth restriction (resolved) Medical complications OB: psychiatric (hx of depression) and other (hypothyroidism) Preadmission Labs Last OB Lab Results: 2 Blood Type O Positive 04/07/24 06:53 Antibody Screen Negative 04/07/24 06:53 Hct 36.5 % (36-46) 04/07/24 06:53 Hgb 12.3 g/dL (12.0-16.0) 04/07/24 06:53 Glucose 1 Hr 50 gm 87 mg/dL (76-139) 01/05/24 09:52 Group B Strep (PCR) Pos for grp b strep H 03/15/24 10:08 Prior (ies) Past Pregnancies Del. Date GA/Weeks Labor Lgth Wt Sex Route Outcome Anesthesia Place Delv Breastfeed Preg Comp Name 01/08/19 11 elective 07/05/20 40.3 8 lb 3 oz Female vaginal live - full ter m epidural [place], [place] 3 months other [place] 04/07/23 40.1 5 8 lb 7 oz Male vaginal live - full term ep idural [facility] 5 1/2 months none [place] Delivery Date: 01/08/19 Last Updated by: Rosetet Leon RN D&C, no complications Delivery Date: 07/05/20 Last Updated by: Rosette Leon RN slow leak->induction Delivery Date: 04/07/23 Last Updated by: Rosette Carolyn, RN severe depression Evaluation Evaluation Baseline heart rate: 145 Variability: Average (6-10) monitor accelerations: Present Monitor Decelerations: Absent Uterine Contraction Intensity: Strong/Firm Category of Tracing: Reactive Status: Category l Dilation (cm): 9 Effacement (%): 100 PFSH Medical History (Updated 01/04/24 @ 19:14 by Akila Chino) Substance abuse Anemia (~2017) Tinnitus Ovarian cyst Hemorrhoid (~2018) Hypothyroidism Cervical cancer (~2020) Acne HSV (herpes simplex virus) infection Positive GBS test Genital HSV Status post elective Methamphetamine abuse, episodic Alcohol abuse Anxiety History of ear injury Asthma Depression Surgical History (Updated 11/16/23 @ 10:38 by Rosette Leon RN) History of dilation and curettage (~2018) [place] teeth extracted (~2018) Family History (Updated 11/16/23 @ 10:42 by Rosette Leon RN) Mother Hypothyroidism Depression hemorrhage Sister Hyperthyroidism Aunt Hyperthyroidism Skin cancer Grandfather Parkinson's disease Grandmother Hypertension Depression Father Depression Grandmother Depression Social History (System 11/16/23 @ 08:42 by Liane Allison) marital status: unmarried,living together number of children: 2 household members: significant other lives independently: Yes caregiver/support person: Yes housing: homeless (couch hopping w/ relatives) pets and animals: No education level: college (Associate's degree) occupational status: unemployed current occupational exposures/hazards: No special joo needs: No travel history: over 6 months ago seatbelt use: always water heater temp set < 120 deg: Yes working smoke detector in home: Yes fire extinguisher in home: Yes carbon monox detector in home: Yes firearms in home: No do you feel safe at home: Yes Smoking Status: Former smoker Tobacco: How many years used: 9 (smoked->vaped->nicotine gum, quit at beginning of this ) quit status: considering quitting (I'm working on it. ) second hand exposure: Yes (s/o smokes outside) alcohol intake: former (~1-2 glasses wine/week most weeks when not ) substance use type: former substance user (meth and weed quit 02/19/18, relapsed, quit again 2019) during the past year weight has: other (youngest child 7 months old (~15-20 lb over non- wt at beginning of this )) well-balanced diet: daily or most days daily servings fruits/ve or more times/day caffeine: Yes (1-2 shots espresso) Type(s) of exercise: none Meds Home Medications and Allergies Home Medications Medication Instructions Recorded Confirmed Type vitamin-ferrous sulfate tab PO 11/16/23 04/05/24 History 27 mg iron-folic acid 0.8 mg tablet aspirin 81 mg tablet,delayed 81 mg PO DAILY #90 tabs 12/03/23 04/05/24 Rx release (Adult Aspirin Regimen) valacyclovir 500 mg tablet 500 mg PO BID #60 tabs 03/01/24 04/05/24 Rx (Valtrex) levothyroxine 112 mcg tablet 112 mcg PO DAILY #30 tabs 04/04/24 04/05/24 Rx (Synthroid) Allergies Allergy/AdvReac Type Severity Reaction Status Date / Time gluten AdvReac Mild Fatigued Verified 04/05/24 09:22 Solanum- [place] AdvReac Mild Fatigued Verified 04/05/24 09:22 Vegetables OB Exam Vital signs Blood Pressure: 126/73 Pulse Rate: 85 Respiratory Rate: 18 Temperature: 97.7 F Objective Labs 04/07/24 06:53 Labs: Laboratory Results - last 24 hr 04/07/24 06:53 WBC 11.8 H RBC 4.17 Hgb 12.3 Hct 36.5 MCV 87.6 MCH 29.6 MCHC 33.8 RDW 13.3 Plt Count 189 Neut % (Auto) 64.4 Lymph % (Auto) 27.6 [place] % (Auto) 5.6 Eos % (Auto) 1.8 L Baso % (Auto) 0.6 Neut # (Auto) 7600 H Lymph # (Auto) 3300 [place] # (Auto) 700 Eos # (Auto) 200 Baso # (Auto) 100 Blood Type O Positive Antibody Screen Negative Assessment and Plan Assessment and Plan Assessment and Plan narrative: 23 yo at 40w2d with contractions beginning at 2am. Presented to L&D at 6am at 6cm dilated. Membranes intact. complicated by HSV on valtrex prophylaxis. GBS positive. Hypothyroidism on 112mcg levothyroxine. IUGR that resolved, MFM serial US. -admit for spontaneous labor -cefazolin started, aim for 4 hours of GBS prophylaxis Time-Based Coding :: 40 minutes spent with patient and on the chart (including review of chart, obtaining history, exam, reviewing outside data, placing orders, documenting exam and treatment plan, and counseling patient) on 04/07.
[2024-04-07 09:04] VITALS: BP 126/73; PULSE 85; RESP 18; TEMP 36.5
[2024-04-07] MEDS: AMPICILLIN 1,000 MG in SODIUM CHLORIDE 0.9% 100 ML 200 MG IV (11:06)
--- NOTE | 2024-04-07 12:13 | PM.OBPRVD ---
Labor & Delivery Delivery date: 04/07/24 Delivery Time: 11:57 Intrapartal Events: None Cervical ripening method: none Induction method: none Delivery augmentation: rupture of membranes Delivery monitor: external FHT Route of delivery: L&D Laceration Description: None Anesthesia Type: Spinal Narrative: Patient was found to be complete and intact. AROM with clear fluid. With pushing efforts baby was brought to the perineum in OA position. With additional push head delivered, on next push body delivered atraumatically. Baby was a vigorous female . Cord was clamped and cut after one minute. Pitocin was started. There was a gush of blood and placenta delivered with gentle traction and external fundal massage. There were no lacerations. Uterus was firm and there was no bleeding. Baby 1: Infant gender: Female Presentation: vertex Placenta delivery description: Spontaneous Cord Vessel Description: 3 Vessels score (1 min): 9 score (5 min): 9 Plan for aftercare: Routine care
[2024-04-07] MEDS: LANOLIN OINT 7 GM 1 APPLIC TOP (16:02)
[2024-04-07] MEDS: IBUPROFEN 600 MG TABLET PO ×2 (16:03→23:42)
[2024-04-07] MEDS: ACETAMINOPHEN 325 MG TABLET 650 MG PO (22:46)
[2024-04-08] MEDS: ACETAMINOPHEN 325 MG TABLET 650 MG PO ×2 (03:46→10:27)
[2024-04-08] MEDS: LEVOTHYROXINE 112 MCG TABLET PO (06:59)
--- NOTE | 2024-04-08 08:09 | PM.OBDS.1 ---
Discharge Providers Provider Date of admission: 04/07/24 06:07 Discharge Date: 04/08/24 Primary care physician: Soha Olson DO Consults: 04/07/24 06:49 Consult to Anesthesiology Urgent Comment: Consulting Provider: Anesthesiologist Reason for consultation: Epidural 04/08/24 12:51 Consult to Wrap Turner Routine Comment: Discharge provider: Dhara Jones MD Summary Hospital Course Date Patient Seen: 04/08/24 Time Patient Seen: 08:00 Diagnoses: Term Hospital Course: Patient is a 23 yo G4 now P3 who came in for spontaneous labor at 40w2d. She received 4 hours of GBS prophylaxis antibiotics before delivering vaginally. was complicated by resolved IUGR, hypothyroidism, HSV on valtrex from 36 wks, and GBS pos status. patient recovered well from delivery with minimal pain and bleeding. She was having some difficulty with latching but is confident that she can work on at home. Peripartum Data Delivery Method: Natural Vaginal Laceration Description: None complications: none Status at Discharge Cognitive/behavioral status at discharge: oriented Time Spent with Patient Time attestation: Total time spent providing and/or coordinating discharge services: Time spent: Greater than 30 minutes Objective Labs 04/07/24 06:53 Exam Narrative Exam Narrative: NAD, breathing easily Discharge Plan Discharge Plan Patient Disposition: Home Discharge orders & Medications Prescriptions: New acetaminophen 325 mg Tablet 650 mg PO Q6HR PRN (Reason: Pain, Mild (1-3)) 30 Days Qty: 30 0RF ibuprofen 600 mg Tablet 600 mg PO Q6HR PRN (Reason: Pain, Mild (1-3)) Qty: 30 0RF levothyroxine 100 mcg tablet 100 mcg PO DAILY Qty: 60 1RF Continued vit-ferrous sulfat-FA 27 mg iron- 0.8 mg tablet PO Discontinued aspirin [Adult Aspirin Regimen] 81 mg tablet,delayed release (DR/EC) 81 mg PO DAILY Qty: 90 2RF valacyclovir [Valtrex] 500 mg tablet 500 mg PO BID Qty: 60 1RF levothyroxine [Synthroid] 112 mcg tablet 112 mcg PO DAILY Qty: 30 2RF Follow up/Referrals: Soha Olson DO [Primary Care Provider] - Visit Report/Discharge Packet Stand Alone Forms: Patient Portal/API, Stroke Signs & Symptoms Discharge Data Primary Care Provider: Soha Olson Attending Provider: Leydi Hoyos Admit Date/Time: 04/07/24 06:07
[2024-04-08] MEDS: IBUPROFEN 600 MG TABLET PO (09:07)
[2024-04-08] MEDS: PRENATAL VIT,CALC/IRON/FOLIC 1 TABLET 1 TAB PO (09:08)
[2024-04-08 10:55] VITALS: BP 126/73; PULSE 85; RESP 18; TEMP 36.5
== END 2024-04-08 11:00 | disposition home or self-care (01) | DRG 560 ==
PROVIDERS: Admitting Provider Family Medicine; PCP Family Medicine; Referring Provider Family Medicine; Visit Provider Family Medicine
DX: O98.52 Other viral diseases complicating childbirth (principal); B00.9 Herpesviral infection, unspecified; O99.824 Streptococcus B carrier state complicating childbirth; Z3A.40 40 weeks gestation of pregnancy; Z37.0 Single live birth
CPT/HCPCS: 59050; 85025; 86850; 86900; 86901; G0379; J0290

== ENCOUNTER → 2024-06-08 14:25 | Outpatient (CLI) | payer OTHER, SELFPAY ==
[2024-06-08 15:58] LABS: Vitamin D 25 Hydroxy (D3) 22.6 ng/mL (30.0-100.0)
[2024-06-08 16:02] LABS: Thyroid Stimulating Hormone 0.065 uIU/mL (0.47-4.68)
== END ==
PROVIDERS: PCP Family Medicine; Referring Provider Family Medicine; Visit Provider Family Medicine
DX: E03.9 Hypothyroidism, unspecified (principal); F41.8 Other specified anxiety disorders
CPT/HCPCS: 36415; 82306; 84443

== ENCOUNTER → 2024-06-09 10:39 | Outpatient (CLI) | payer OTHER, SELFPAY | PROVIDERS: PCP Family Medicine; Visit Provider Student in an Organized Health Care Education/Training Program | DX: N76.0 Acute vaginitis (principal); B96.89 Other specified bacterial agents as the cause of diseases classified elsewhere | CPT/HCPCS: 87210 ==

== ENCOUNTER → 2024-07-26 12:51 | Outpatient (CLI) | payer OTHER, SELFPAY ==
[2024-07-26 14:14] LABS: Thyroid Stimulating Hormone 8.16 uIU/mL (0.47-4.68)
== END ==
PROVIDERS: PCP Family Medicine; Referring Provider Family Medicine; Visit Provider Family Medicine
DX: E03.9 Hypothyroidism, unspecified (principal)
CPT/HCPCS: 36415; 84443

== ENCOUNTER → 2024-11-22 11:34 | Outpatient (CLI) | payer OTHER, SELFPAY ==
[2024-11-22 13:25] LABS: Thyroid Stimulating Hormone 1.49 uIU/mL (0.47-4.68)
== END ==
PROVIDERS: PCP Family Medicine; Referring Provider Family Medicine; Visit Provider Family Medicine
DX: E06.3 Autoimmune thyroiditis (principal); E03.9 Hypothyroidism, unspecified
CPT/HCPCS: 36415; 84443

== ENCOUNTER → 2025-02-15 11:56 | Outpatient (CLI) | payer OTHER, SELFPAY ==
[2025-02-15 13:43] LABS: Thyroid Stimulating Hormone 3.01 uIU/mL (0.47-4.68)
== END ==
PROVIDERS: PCP Family Medicine; Referring Provider Family Medicine; Visit Provider Family Medicine
DX: E03.9 Hypothyroidism, unspecified (principal)
CPT/HCPCS: 36415; 84443